=== PATIENT | female | born 1970 | race Caucasian/White ===

== ENCOUNTER 2016-07-25 08:34 | Emergency (ER) | payer OTHER ==
[~2016-07-25] VITALS: Ht 177.8 cm; Wt 84.1 kg
[~2016-07-25 08:34] MED LIST: ATIVAN 0.50.5 MG/TAB PO; FLONASEALLERGY NS; NEURONTIN100 MG/CAP; REGLAN 10MG10 MG/TAB PO; SYNTHROID 0.0.025 MG PO
[2016-07-25 08:38] VITALS: TEMP 98.6
[2016-07-25] MEDS ORDERED: PHENERGAN 25 TA25 MG PO (08:43)
[2016-07-25] MEDS ORDERED: FLEXERIL 1010 MG/TAB PO (08:43)
[2016-07-25] MEDS ORDERED: ZANTAC 7575 MG PO (08:44)
[2016-07-25] MEDS ORDERED: SYNTHROID0.05 MG/TA PO (08:44)
[2016-07-25] MEDS ORDERED: INDERAL40 MG PO (08:44)
[2016-07-25] MEDS ORDERED: NATURAL MAGNES200 MG PO (08:46)
[2016-07-25] MEDS ORDERED: B COMPLEX #11 TA1 PO (08:46)
[2016-07-25] MEDS ORDERED: ALLEGRA 180MG180 MG PO (08:46)
[2016-07-25] MEDS ORDERED: OMEGA-3 1000 MG1 CAP PO (08:46)
[2016-07-25] MEDS ORDERED: VITAMIN B225 MG PO (08:48)
[2016-07-25] MEDS ORDERED: FLONASE NASAL S16 GM NS (08:49)
[2016-07-25] MEDS ORDERED: VIIBRYD10 MG PO (08:50)
[2016-07-25] MEDS ORDERED: NORCO 325 MG-51 TAB PO (10:03)
[2016-07-25] MEDS ORDERED: ATIVAN 0.50.5 MG/TAB PO (10:03)
[2016-07-25 10:22] VITALS: BP 99/57; PULSE 60
== END 2016-07-25 10:11 | disposition home or self-care (01) ==
LOC: COL.ER 08:34
DX: S01.112A Laceration without foreign body of left eyelid and periocular area, initial encounter (principal); S00.83XA Contusion of other part of head, initial encounter; V43.52XA Car driver injured in collision with other type car in traffic accident, initial encounter; Y92.410 Unspecified street and highway as the place of occurrence of the external cause; Z23 Encounter for immunization

== ENCOUNTER 2016-07-29 10:16 | Emergency (ER) | payer OTHER ==
[~2016-07-29 10:16] MED LIST changes: +ALLEGRA 180MG180 MG PO; +B COMPLEX #11 TA1 PO; +FLEXERIL 1010 MG/TAB PO; +FLONASE NASAL S16 GM NS; +INDERAL40 MG PO; +NATURAL MAGNES200 MG PO; +NORCO 325 MG-51 TAB PO; +OMEGA-3 1000 MG1 CAP PO; +PHENERGAN 25 TA25 MG PO; +SYNTHROID0.05 MG/TA PO; +VIIBRYD10 MG PO; +VITAMIN B225 MG PO; +ZANTAC 7575 MG PO
[2016-07-29 10:21] VITALS: BP 135/61; PULSE 63; TEMP 99.3
== END 2016-07-29 10:30 | disposition home or self-care (01) ==
LOC: COL.ER 10:16
DX: Z48.02 Encounter for removal of sutures (principal)

== ENCOUNTER → 2016-11-17 | Outpatient (CLI) | payer OTHER | LOC: MC.RAD 09:59 | DX: Z12.31 Encounter for screening mammogram for malignant neoplasm of breast (principal) ==

== ENCOUNTER → 2017-12-07 | Outpatient (CLI) | payer OTHER | LOC: MC.RAD 08:54 | DX: Z12.31 Encounter for screening mammogram for malignant neoplasm of breast (principal) ==

== ENCOUNTER → 2018-12-20 | Outpatient (CLI) | payer OTHER | LOC: MC.RAD 10:45 | DX: Z12.31 Encounter for screening mammogram for malignant neoplasm of breast (principal) ==

== ENCOUNTER 2019-01-11 12:45 | Outpatient (RCR) | payer OTHER | END 2019-01-13 | disposition home or self-care (01) | LOC: WSPT | DX: M54.2 Cervicalgia (principal); M25.511 Pain in right shoulder; R51 Headache; M79.671 Pain in right foot; M79.672 Pain in left foot ==

== ENCOUNTER 2019-02-11 14:00 | Outpatient (RCR) | payer BC | END 2019-02-25 09:09 | disposition home or self-care (01) | LOC: WSPT 14:00 | DX: M54.2 Cervicalgia (principal); M79.671 Pain in right foot; M79.672 Pain in left foot; M25.511 Pain in right shoulder; R51 Headache ==

== ENCOUNTER → 2019-10-15 | Outpatient (CLI) | payer BC | LOC: COL.ER 14:04 | DX: Z20.828 Contact with and (suspected) exposure to other viral communicable diseases (principal) ==

== ENCOUNTER → 2019-10-28 | Outpatient (CLI) | payer BC | LOC: MC.RAD 08:30 | DX: Z12.31 Encounter for screening mammogram for malignant neoplasm of breast (principal) ==